=== PATIENT | male | born 1965 | race Caucasian/White ===

== ENCOUNTER 2018-03-01 07:14 | Emergency (ER) | payer MEDICAID ==
[~2018-03-01] VITALS: Ht 160 cm; Wt 69.9 kg
[2018-03-01 07:32] VITALS: BP 137/83
[2018-03-01 08:40] LABS: EOSINOPHILS # (AUTO) 0.1 K/uL (0-0.4); HEMOGLOBIN 15.4 g/dL (12.0-18.0); MONOCYTES # (AUTO) 0.4 K/uL (0.8-1.0); NEUTROPHILS # (AUTO) 4.6 K/uL (1.8-7.7); NEUTROPHILS % (AUTO) 76.8 % (42.2-75.2); RED CELL DISTRIBUTION WIDTH 14.5 % (11.6-13.7)
[2018-03-01 08:45] LABS: BASOPHILS % (AUTO) 0.2 % (0.0-2.0); EOSINOPHILS % (AUTO) 1.9 % (0.0-4.0); HEMATOCRIT 46.7 % (36-52); LYMPHOCYTES # (AUTO) 0.9 K/uL (2.0-11.5); LYMPHOCYTES % (AUTO) 14.7 % (20.5-51.1); MEAN CORPUSCULAR HEMOGLOBIN 31 pg (27-31); MEAN CORPUSCULAR HGB CONC 33 g/dL (33-37); MEAN CORPUSCULAR VOLUME 94.9 fL (80-94); MONOCYTES % (AUTO) 6.4 % (1.7-9.3); PLATELET COUNT (AUTO) 112 K/uL (140-450); RED BLOOD CELL COUNT(AUTO) 4.92 MIL/uL (4.20-6.10); WHITE BLOOD COUNT (AUTO) 5.9 K/uL (4.8-10.8)
[2018-03-01 09:01] LABS: ALBUMIN 3.7 g/dL (3.4-5.0); ANION GAP 9.4 (8-16); CARBON DIOXIDE 31.2 mmol/L (21-32); POTASSIUM 3.6 mmol/L (3.5-5.1); TOTAL BILIRUBIN 0.5 mg/dL (0.0-1.0)
[2018-03-01 09:03] LABS: PROTHROMBIN TIME 11.1 secs (10.8-13.4)
[2018-03-01] MEDS ORDERED: KETOROLAC 30 MG/ML VIAL IVP ONE (09:35)
[2018-03-01 09:47] VITALS: BP 130/75
== END 2018-03-01 09:47 | disposition home or self-care (01) ==
LOC: MED 07:14
DX: K51.90 Ulcerative colitis, unspecified, without complications (principal)
CPT/HCPCS: 36415; 80053; 83690; 85025; 85610; 85730; 96374; 99283; J1885; 81002

== ENCOUNTER 2018-04-25 12:00 | Emergency (ER) | payer MEDICAID ==
[~2018-04-25] VITALS: Ht 165.1 cm; Wt 70.9 kg
[2018-04-25 12:09] VITALS: BP 138/64
--- NOTE | 2018-04-25 12:24 | NUR ---
52 yo m bib self w/ c/o ulcerative colitis flare up x 5 days. reports increased bloody diarrhea. denies n/v/fevers. reports he ran out of his medication and cannot afford the refill. aaox4, gcs 15. abd soft, non-tender. amb w/ steady gait. hx ulcerative colitis, kidney stones rx sulfasalzine (out of med)
[2018-04-25] MEDS ORDERED: NACL 0.9% 1,000 ML IV ONE (12:40)
[2018-04-25 13:06] LABS: BASOPHILS % (AUTO) 0.7 % (0.0-2.0); EOSINOPHILS # (AUTO) 0.1 K/uL (0-0.4); EOSINOPHILS % (AUTO) 2.1 % (0.0-4.0); HEMATOCRIT 46.2 % (36-52); HEMOGLOBIN 15.3 g/dL (12.0-18.0); LYMPHOCYTES % (AUTO) 33.8 % (20.5-51.1); MEAN CORPUSCULAR HEMOGLOBIN 32 pg (27-31); MEAN CORPUSCULAR HGB CONC 33 g/dL (33-37); MEAN CORPUSCULAR VOLUME 96.3 fL (80-94); MONOCYTES # (AUTO) 0.6 K/uL (0.8-1.0); MONOCYTES % (AUTO) 9.6 % (1.7-9.3); NEUTROPHILS # (AUTO) 3.1 K/uL (1.8-7.7); NEUTROPHILS % (AUTO) 53.8 % (42.2-75.2); PLATELET COUNT (AUTO) 115 K/uL (140-450); RED CELL DISTRIBUTION WIDTH 13.7 % (11.6-13.7); WHITE BLOOD COUNT (AUTO) 5.8 K/uL (4.8-10.8)
[2018-04-25 13:47] LABS: ANION GAP 6.7 (8-16); CARBON DIOXIDE 29.1 mmol/L (21-32); POTASSIUM 3.8 mmol/L (3.5-5.1); TOTAL BILIRUBIN 0.4 mg/dL (0.0-1.0)
[2018-04-25 14:50] VITALS: BP 129/79
--- NOTE | 2018-04-25 14:50 | NUR ---
Patient discharged with v/s stable. Written and verbal after care instructions given and explained. Patient alert, oriented and verbalized understanding of instructions. Ambulatory with steady gait. All questions addressed prior to discharge. ID band removed. Patient advised to follow up with PMD. Rx of SULFASALZINE & MOTRIN given. Patient educated on indication of medication including possible reaction and side effects. Opportunity to ask questions provided and answered.
== END 2018-04-25 14:50 | disposition home or self-care (01) ==
LOC: MED 12:00
DX: K52.9 Noninfective gastroenteritis and colitis, unspecified (principal); Z87.442 Personal history of urinary calculi
CPT/HCPCS: 36415; 74176; 80053; 85025; 85610; 85730; 87040; 96360; 96361; 99284; J7030